=== PATIENT | male | born 2000 | race Caucasian/White ===

== ENCOUNTER 2022-04-18 10:10 | Emergency (ER) | payer OTHER ==
[~2022-04-18 10:10] MED LIST: AUGMENTIN 875-1 EACH PO; IBUPROFEN800 MG PO; INSULIN LI100 UNIT/2 SC; LANTUS SOL100 UNIT/1 SC; NOVOLOG VI100 UNIT/1 SQ; PERCOCET 5-3251 EACH PO; ROBAXIN750 MG PO
[2022-04-18] MEDS ORDERED: IBUPROFEN800 MG PO (11:55)
== END 2022-04-18 12:49 | disposition home or self-care (01) ==
LOC: FER 10:10
DX: S92.421A Displaced fracture of distal phalanx of right great toe, initial encounter for closed fracture (principal); E10.9 Type 1 diabetes mellitus without complications; W27.0XXA Contact with workbench tool, initial encounter; Y92.009 Unspecified place in unspecified non-institutional (private) residence as the place of occurrence of the external cause
CPT/HCPCS: 73660